=== PATIENT | female | born 1995 | race African-American/Black ===

== ENCOUNTER 2019-03-26 05:51 | Emergency (ER) | payer OTHER ==
[~2019-03-26] VITALS: Ht 154.9 cm; Wt 97.1 kg
[2019-03-26 05:55] VITALS: Ht 154.9 cm; Wt 97.1 kg
[2019-03-26 07:14] VITALS: BP 120/67
== END 2019-03-26 07:14 | disposition home or self-care (01) ==
LOC: ED 05:51
DX: H66.91 Otitis media, unspecified, right ear (principal)